=== PATIENT | female | born 1970 | race Caucasian/White ===

== ENCOUNTER 2018-01-03 18:59 | Emergency (ER) | payer OTHER ==
[2018-01-03] MEDS: Sodium Chloride 0.9% 10 ML Syringe FLUSH PRN (19:46)
--- NOTE | 2018-01-03 19:54 | EDM.PDOC ---
ED HPI GENERAL MEDICAL PROBLEM - General Chief Complaint: HOSPITAL STAFF PHARMACIST Problem Stated Complaint: LOWER STOMACH/BACK PAIN Time Seen by Provider: 01/03/18 19:34 Source of Information: Reports: Patient History Limitations: Reports: No Limitations - History of Present Illness INITIAL COMMENTS - FREE TEXT/NARRATIVE: 47-year-old female presents for evaluation and treatment of lower abdominal pain and back pain. Patient reports she was at work. States that the pain began suddenly. Reports that it is across her lower abdomen and radiates into her back. Pain is currently an 8 out of 10. She describes as a constant, cramping pain. She states that it worse was a "1000" out of 10. Pain has improved without any intervention. She reports feeling nauseous, diaphoretic, lightheaded and dizzy. No fevers, vomiting, syncope, dysuria or hematuria. Reports she had a good appetite earlier today. Patient reports that she started her menstrual cycle Mon. States that is heavier than normal and she is passing clots. She states she is having to change her pad or tampon about every 2 hours. States that her menstrual cycle was not late. She had a tubal ligation about 20 years ago. Patient is healthy with no known medical conditions. She's not currently on any medications. No previous surgeries to her abdomen. Onset: Today, Sudden Location: Reports: Abdomen, Back Quality: Reports: Other (cramping) Abdominal Pain Score (Numeric/FACES): 8 - Related Data Allergies Allergy/AdvReac Type Severity Reaction Status Date / Time No Known Allergies Allergy Verified 01/03/18 19:13 Home Meds: Home Meds Acetaminophen/oxyCODONE [Percocet 325-5 MG] 1 tab PO Q6HR PRN #8 tab 01/03/18 [ Rx] Ibuprofen 800 mg PO Q6HR PRN #20 tablet 01/03/18 [Rx] Ondansetron [Zofran ODT] 4 mg PO Q6H PRN #15 tab.dis 01/03/18 [Rx] Past Medical History - Past Health History Medical/Surgical History: Denies Medical/Surgical History Social & Family History - Tobacco Use Smoking Status *Q: Never Smoker - Recreational Drug Use Recreational Drug Use: No ED ROS GENERAL - Review of Systems Review Of Systems: See Below Constitutional: Denies: Fever, Decreased Appetite GI/Abdominal: Reports: Abdominal Pain (lower abdomen), Nausea. Denies: Vomiting : Denies: Dysuria Musculoskeletal: Reports: Back Pain (low back) Neurological: Denies: Syncope ED EXAM, GI/ABD - Physical Exam Exam: See Below Exam Limited By: No Limitations General Appearance: Alert, WD/WN, No Apparent Distress, Anxious, Obese Respiratory/Chest: No Respiratory Distress, Lungs Clear, Normal Breath Sounds Cardiovascular: Normal Peripheral Pulses, Regular Rate, Rhythm, No Murmur GI/Abdominal Exam: Normal Bowel Sounds, Rebound, Tender (bilateral lower abdomen right> left), Other (+ obturator sign, - psosas sign, no pain with heel percussion). No: Rigid Neurological: Alert, Oriented, Normal Cognition Psychiatric: Normal Affect, Normal Mood Skin Exam: Warm, Dry, Normal Color Course - Vital Signs Last Recorded V/S: Last Vital Signs Temp 36.7 C 01/03/18 19:14 Pulse 73 01/03/18 19:14 Resp 17 01/03/18 19:14 BP 179/94 H 01/03/18 19:14 Pulse Ox 98 01/03/18 19:14 - Orders/Labs/Meds Orders: Active Orders 24 hr Category Date Time Status Peripheral IV Care [RC] . DIRECTED Care 01/03/18 19:38 Active Abdomen Pelvis w Cont [CT] Stat Exams 01/03/18 20:39 Ordered UA W/MICROSCOPIC [URIN] Stat Lab 01/03/18 20:33 Ordered Sodium Chloride 0.9% [Saline Flush] Med 01/03/18 19:38 Active 10 ml FLUSH ASDIRECTED PRN Peripheral IV Insertion Adult [OM.PC] Routine Oth 01/03/18 19:37 Ordered Medication Orders Sodium Chloride (Saline Flush) 10 ml FLUSH ASDIRECTED PRN PRN Reason: Keep Vein Open Last Admin: 01/03/18 19:46 Dose: 10 ml Labs: Laboratory Tests 01/03/18 01/03/18 01/03/18 Range/Units 20:15 20:15 20:15 WBC 11.88 H (3.98-10.04) K/mm3 RBC 4.72 (3.98-5.22) M/mm3 Hgb 12.9 (11.2-15.7) gm/L Hct 39.0 (34.1-44.9) % MCV 82.6 (79.4-94.8) fl MCH 27.3 (25.6-32.2) pg MCHC 33.1 (32.2-35.5) g/dl RDW Std Deviation 40.1 (36.4-46.3) fL Plt Count 111 L (182-369) K/mm3 MPV 10.7 (9.4-12.3) fl Neutrophils % (Manual) 72 H (40-60) % Band Neutrophils % 0 (0-10) % Lymphocytes % (Manual) 18 L (20-40) % Atypical Lymphs % 0 % Monocytes % (Manual) 9 (2-10) % Eosinophils % (Manual) 1 (0.7-5.8) % Basophils % (Manual) 0 L (0.1-1.2) Platelet Estimate Adequate Plt Morphology Comment Normal RBC Morph Comment Normal Sodium 138 (136-145) mEq/L Potassium 3.8 (3.5-5.1) mEq/L Chloride 102 (98-107) mEq/L Carbon Dioxide 26 (21-32) mEq/L Anion Gap 13.8 (5-15) BUN 11 (7-18) mg/dL Creatinine 0.8 (0.55-1.02) mg/dL Est Cr Clr Drug Dosing 74.26 mL/min Estimated GFR (MDRD) > 60 (>60) mL/min BUN/Creatinine Ratio 13.8 L (14-18) Glucose 139 H (74-106) mg/dL Calcium 8.7 (8.5-10.1) mg/dL Total Bilirubin 0.3 (0.2-1.0) mg/dL AST 24 (15-37) U/L ALT 49 (14-59) U/L Alkaline Phosphatase 75 (46-116) U/L C-Reactive Protein 0.9 (<1.0) mg/dL Total Protein 7.0 (6.4-8.2) g/dl Albumin 3.8 (3.4-5.0) g/dl Globulin 3.2 gm/dL Albumin/Globulin Ratio 1.2 (1-2) HCG, Qual Negative (NEGATIVE) Urine Color (Yellow) Urine Appearance (Clear) Urine pH (5.0-8.0) Ur Specific [place] (1.005-1.030) Urine Protein (Negative) Urine Glucose (UA) (Negative) Urine Ketones (Negative) Urine Occult Blood (Negative) Urine Nitrite (Negative) Urine Bilirubin (Negative) Urine Urobilinogen (0.2-1.0) Ur Leukocyte Esterase (Negative) Urine RBC (0-5) /hpf Urine WBC (0-5) /hpf Ur Epithelial Cells (0-5) /hpf Urine Bacteria (FEW) /hpf Urine Mucus (FEW) /hpf 01/03/18 Range/Units 20:33 WBC (3.98-10.04) K/mm3 RBC (3.98-5.22) M/mm3 Hgb (11.2-15.7) gm/L Hct (34.1-44.9) % MCV (79.4-94.8) fl MCH (25.6-32.2) pg MCHC (32.2-35.5) g/dl RDW Std Deviation (36.4-46.3) fL Plt Count (182-369) K/mm3 MPV (9.4-12.3) fl Neutrophils % (Manual) (40-60) % Band Neutrophils % (0-10) % Lymphocytes % (Manual) (20-40) % Atypical Lymphs % % Monocytes % (Manual) (2-10) % Eosinophils % (Manual) (0.7-5.8) % Basophils % (Manual) (0.1-1.2) Platelet Estimate Plt Morphology Comment RBC Morph Comment Sodium (136-145) mEq/L Potassium (3.5-5.1) mEq/L Chloride (98-107) mEq/L Carbon Dioxide (21-32) mEq/L Anion Gap (5-15) BUN (7-18) mg/dL Creatinine (0.55-1.02) mg/dL Est Cr Clr Drug Dosing mL/min Estimated GFR (MDRD) (>60) mL/min BUN/Creatinine Ratio (14-18) Glucose (74-106) mg/dL Calcium (8.5-10.1) mg/dL Total Bilirubin (0.2-1.0) mg/dL AST (15-37) U/L ALT (14-59) U/L Alkaline Phosphatase (46-116) U/L C-Reactive Protein (<1.0) mg/dL Total Protein (6.4-8.2) g/dl Albumin (3.4-5.0) g/dl Globulin gm/dL Albumin/Globulin Ratio (1-2) HCG, Qual (NEGATIVE) Urine Color [place] H (Yellow) Urine Appearance Slt cloudy H (Clear) Urine pH 6.0 (5.0-8.0) Ur Specific [place] 1.015 (1.005-1.030) Urine Protein Negative (Negative) Urine Glucose (UA) Negative (Negative) Urine Ketones Negative (Negative) Urine Occult Blood 3+ H (Negative) Urine Nitrite Negative (Negative) Urine Bilirubin Negative (Negative) Urine Urobilinogen 0.2 (0.2-1.0) Ur Leukocyte Esterase Negative (Negative) Urine RBC 40-50 H (0-5) /hpf Urine WBC 0-5 (0-5) /hpf Ur Epithelial Cells 0-5 (0-5) /hpf Urine Bacteria Not seen (FEW) /hpf Urine Mucus Not seen (FEW) /hpf Meds: Medications Generic Name Dose Route Start Last Admin Trade Name Freq PRN Reason Stop Dose Admin Sodium Chloride 10 ml 01/03/18 19:38 01/03/18 19:46 Saline Flush FLUSH 10 ml ASDIRECTED PRN Administration Keep Vein Open Discontinued Medications Generic Name Dose Route Start Last Admin Trade Name Freq PRN Reason Stop Dose Admin Diatrizoate Meglum/Diatrizoate Sod 90 ml 01/03/18 21:59 01/03/18 22:21 Gastrografin 37% PO 01/03/18 22:00 90 ml ONETIME ONE Administration Hydromorphone HCl 0.5 mg 01/03/18 19:38 01/03/18 19:59 Dilaudid IVPUSH 01/03/18 19:39 0.5 mg ONETIME ONE Administration Hydromorphone HCl 0.5 mg 01/03/18 21:53 01/03/18 21:59 Dilaudid IVPUSH 01/03/18 21:54 0.5 mg ONETIME ONE Administration Sodium Chloride 1,000 mls @ 999 mls/hr 01/03/18 19:38 01/03/18 19:58 Normal Saline IV 01/03/18 20:38 999 mls/hr ONETIME ONE Administration Iopamidol 100 ml 01/03/18 21:58 01/03/18 22:21 Isovue-300 (61%) IVPUSH 01/03/18 21:59 100 ml ONETIME ONE Administration Ketorolac Tromethamine 30 mg 01/03/18 22:40 01/03/18 22:44 Toradol IVPUSH 01/03/18 22:41 30 mg ONETIME ONE Administration Ondansetron HCl 4 mg 01/03/18 19:38 01/03/18 19:59 Zofran IVPUSH 01/03/18 19:39 4 mg ONETIME ONE Administration - Radiology Interpretation Free Text/Narrative:: CT of the abdomen and pelvis with IV and oral contrast impression per vrad: No acute findings - Re-Assessments/Exams Free Text/Narrative Re-Assessment/Exam: 01/03/18 22:48 I reviewed the labs and imaging with the patient. Appears to be menstrual cramps causing her pain tonight. I did order some Toradol as this will target her discomfort better than the Dilaudid. Will get her some pain pills and some medication for nausea. She is to follow-up with her HOSPITAL STAFF PHARMACIST if her symptoms persist. Discharge instructions as documented. Departure - Departure Time of Disposition: 22:49 Disposition: Home, Self-Care 01 Condition: Fair Clinical Impression: Dysmenorrhea, Menorrhagia - Discharge Information Prescriptions: Acetaminophen/oxyCODONE [Percocet 325-5 MG] 1 tab PO Q6HR PRN #8 tab PRN Reason: Pain Ibuprofen 800 mg PO Q6HR PRN #20 tablet PRN Reason: Pain Ondansetron [Zofran ODT] 4 mg PO Q6H PRN #15 tab.dis PRN Reason: Nausea Referrals: Almaz Wu PA-C [Primary Care Provider] - Maria Antonia Roberson NP [Nurse Practitioner] - Forms: ED Department Discharge, ED Return to Work/School Form Additional Instructions: Your given medication the other can affect your ability to drive and operate machinery. Do not drive or operate machinery within 12 hours of taking prescription narcotic pain medication. Rest. Make sure are drinking plenty of fluids. Ibuprofen 800 mg 1 tab every 6 hours as needed for pain. For pain not relieved by ibuprofen you may take Percocet 1 tab every 6 hours. Percocet is habit- forming, recommend you take as few of these as needed to control your pain. Do not drive or operate machinery within 12 hours of taking Percocet. Zofran 1 tab sublingual every 6 hours as needed for nausea. Follow up with your HOSPITAL STAFF PHARMACIST next week if your symptoms persist. Please return to the ER for symptoms change or worsen. - My Orders Last 24 Hours: My Active Orders 01/03/18 19:37 Peripheral IV Insertion Adult [OM.PC] Routine 01/03/18 19:38 Peripheral IV Care [RC] . DIRECTED Sodium Chloride 0.9% [Saline Flush] 10 ml FLUSH ASDIRECTED PRN 01/03/18 20:33 UA W/MICROSCOPIC [URIN] Stat 01/03/18 20:39 Abdomen Pelvis w Cont [CT] Stat - Assessment/Plan Last 24 Hours: My Active Orders 01/03/18 19:37 Peripheral IV Insertion Adult [OM.PC] Routine 01/03/18 19:38 Peripheral IV Care [RC] . DIRECTED Sodium Chloride 0.9% [Saline Flush] 10 ml FLUSH ASDIRECTED PRN 01/03/18 20:33 UA W/MICROSCOPIC [URIN] Stat 01/03/18 20:39 Abdomen Pelvis w Cont [CT] Stat
[2018-01-03] MEDS: Sodium Chloride 0.9% 1,000 ML IV ONE (19:58)
[2018-01-03] MEDS: Ondansetron 4 MG/2 ML SDV IVPUSH ONE (19:59)
[2018-01-03] MEDS: HYDROmorphone 0.5 MG/0.5 ML SYRINGE IVPUSH ONE ×2 (19:59→21:59)
[2018-01-03] MEDS: Diatrizoate Meglumine/Diatrizoate Sodium 37% 120 ML Bottle PO ONE (22:21)
[2018-01-03] MEDS: Iopamidol 612 MG/ML 100 ML Bottle IVPUSH ONE (22:21)
[2018-01-03] MEDS: Ketorolac 30 MG/ML SDV IVPUSH ONE (22:44)
--- NOTE | 2018-01-04 07:14 | CT ---
CT abdomen and pelvis Technique: Multiple axial sections were obtained from above the dome of the diaphragm inferiorly through the pubic symphysis. Intravenous and oral contrast was utilized. Delayed images were also obtained through the pelvis. Comparison: No prior abdominal imaging. Findings: Visualized lung bases shows nothing acute. Liver shows mild fatty infiltration. Spleen appears within normal limits. Adrenal glands show no nodule. Pancreas appears within normal limits. Gallbladder contains no calcified gallstones. Right and left kidneys show symmetric contrast enhancement without hydronephrosis or mass. Aorta shows no aneurysmal dilatation. No retroperitoneal adenopathy or mesenteric abnormalities are seen. Appendix is seen which appears normal. No pelvic mass or adenopathy is seen. Delayed images show contrast within the distal ureters as well as within the bladder. No free fluid or inflammatory change is seen. No bowel dilatation or bowel wall thickening is identified. Bone window settings were reviewed which show degenerative change and vacuum phenomena within the apophyseal joints of L4-L5 and L5-S1. Impression: 1. Degenerative change within the lumbar spine. 2. Fatty infiltration within the liver. 3. No acute abnormality is identified on CT study of the abdomen and pelvis. Diagnostic code #2 I agree with preliminary report issued by [facility] ([facility] preliminary report dictated on 01/03/18, 11:31 PM Central Time)
== END 2018-01-03 23:10 | disposition home or self-care (01) ==
LOC: JD.ED 18:59
DX: N92.0 Excessive and frequent menstruation with regular cycle (principal); N94.6 Dysmenorrhea, unspecified
CPT/HCPCS: 36415; 74177; 80053; 81001; 84703; 85025; 86140; 96361; 96374; 96375; 96376; 99284; J1170; J1885; J2405; J7040; J7050; Q9963; Q9967

== ENCOUNTER 2021-08-26 07:03 | Day surgery (SDC) | payer OTHER ==
[~2021-08-26 07:03] MED LIST: Lactated Ringers 1,000 ML IV SCH; Lidocaine 1%/Sod Bicarbonate in NS 8.4% 1 ML Syringe IDERM PRN; Sodium Chloride 0.9% 10 ML Syringe FLUSH PRN
--- NOTE | 2021-08-26 07:23 | PCM.PREANE ---
Preanesthetic Assessment - Anesthesia/Transfusion/Family Hx Anesthesia History: Prior Anesthesia Without Reaction Family History of Anesthesia Reaction: No Transfusion History: No Prior Transfusion(s) Intubation History: Unknown - Review of Systems General: No Symptoms Pulmonary: No Symptoms Cardiovascular: No Symptoms Gastrointestinal: No Symptoms Neurological: Headache Other: Reports: Diabetes - Physical Assessment NPO Status Date: 08/26/21 NPO Status Time: 04:00 ASA Class: 2 Mental Status: Alert & Oriented x3 Airway Class: Mallampati = 2 Dentition: Reports: Normal Dentition Thyro-Mental Finger Breadths: 3 Mouth Opening Finger Breadths: 3 ROM/Head Extension: Full Lungs: Clear to Auscultation, Normal Respiratory Effort Cardiovascular: Regular Rate, Regular Rhythm - Allergies Allergies/Adverse Reactions: Allergies Allergy/AdvReac Type Severity Reaction Status Date / Time No Known Allergies Allergy Verified 08/25/21 15:12 - Acknowledgements Anesthesia Type Planned: MAC Pt an Appropriate Candidate for the Planned Anesthesia: Yes Alternatives and Risks of Anesthesia Discussed w Pt/Guardian: Yes Pt/Guardian Understands and Agrees with Anesthesia Plan: Yes PreAnesthesia Questionnaire - Past Health History Medical/Surgical History: Denies Medical/Surgical History HEENT History: Reports: Allergic Rhinitis, Impaired Vision, Sinusitis Cardiovascular History: Reports: Hypertension Respiratory History: Reports: Other (See Below) Other Respiratory History: snoring, mild sleep apnea Gastrointestinal History: Reports: Other (See Below) Other Gastrointestinal History: ABDOMINAL PAIN Genitourinary History: Reports: None SUPERVISOR UNLOADING History: Reports: Other (See Below) Other OB/BYN History: abnormal menses, menorrhagia, Musculoskeletal History: Reports: Other (See Below) Other Musculoskeletal History: skull fracture Neurological History: Reports: None Psychiatric History: Reports: None Endocrine/Metabolic History: Reports: Diabetes, Type II, Hypothyroidism, Other (See Below) Other Endocrine/Metabolic History: abnormal TSH Hematologic History: Reports: None Immunologic History: Reports: None Oncologic (Cancer) History: Reports: None Dermatologic History: Reports: Other (See Below) Other Dermatologic History: dermatitis - Infectious Disease History Infectious Disease History: Reports: None - Past Surgical History Head Surgeries/Procedures: Reports: None HEENT Surgical History: Reports: Tonsillectomy Cardiovascular Surgical History: Reports: None Respiratory Surgical History: Reports: None GI Surgical History: Reports: None Female Surgical History: Reports: Hysterectomy, Tubal Ligation Male Surgical History: Reports: None Endocrine Surgical History: Reports: None Neurological Surgical History: Reports: None Oncologic Surgical History: Reports: None Dermatological Surgical History: Reports: None - SUBSTANCE USE Tobacco Use Status *Q: Never Tobacco User Recreational Drug Use History: No - HOME MEDS Home Medications: Home Meds metFORMIN [Glucophage XR] 1,000 mg PO BID 08/09/18 [History] Ibuprofen 200 - 600 mg PO Q6H PRN 08/25/21 [History] Insulin Glarg,Human.Rec.Analog [Lantus] 14 units SQ BEDTIME 08/25/21 [History] Omeprazole Magnesium [Prilosec Otc] 20 mg PO DAILY 08/25/21 [History] lisinopriL [Lisinopril] 20 mg PO DAILY 08/25/21 [History] - CURRENT (IN HOUSE) MEDS Current Meds: Current Medications Lactated Ringer's (Ringers, Lactated) 1,000 mls @ 125 mls/hr IV ASDIRECTED FILIPE Stop: 08/26/21 23:00 Lidocaine/Sodium Bicarbonate (Lidocaine 1%/Sod Bicarbonate In Ns 8.4% 1 Ml Syringe) 0.25 ml IDERM ONETIME PRN PRN Reason: Prior to IV Start Stop: 08/26/21 18:00 Sodium Chloride (Sodium Chloride 0.9% 10 Ml Syringe) 10 ml FLUSH ASDIRECTED PRN PRN Reason: Keep Vein Open Stop: 08/26/21 18:00
[2021-08-26] MEDS ORDERED: fentaNYL 100 MCG/2 ML SDV ONE (07:28)
[2021-08-26] MEDS ORDERED: Propofol 200 MG/20 ML SDV ONE ×3 (07:28→08:28)
[2021-08-26] MEDS ORDERED: Lidocaine 1% 4 ML ONE (07:28)
--- NOTE | 2021-08-26 08:49 | PCM.PRNOTE ---
- Free Text/Narrative Note: Date: 08/26/2021 Procedure: diagnostic esophagogastroduodenoscopy, screening colonoscopy History: bloating, abdominal pain. No prior colon cancer screening, average risk Endoscopist: Moe Daniels MD Findings: no abnormality noted on upper endoscopy. Prep was fair. Cecum reached. No polyps or other pathology identified. Challenging colonoscopy; had to reposition supine to successfully intubate the cecum. Detailed Report: The patient was taken to the endoscopy suite and placed in left lateral decubitus position. Time out was performed and monitored anesthesia care initiated. A bite block was placed, and the endoscope was inserted orally and advanced to the duodenum. Everything appeared grossly normal. Samples of mucosa were obtained with cold forceps from the proximal duodenum, antrum, gastroesophageal junction and distal esophagus. No hiatal hernia was noted. Air was suctioned from the stomach prior to withdrawal of the scope. Next, attention was turned to colonoscopy. The anus appeared normal, and digital exam was remarkable only for what felt like scar tissue anteriorly consistent with prior episiotomy. No mass was palpated. The colonoscope was inserted and advanced to the cecum. Reaching the cecum was difficult due to redundant, serpiginous colon. Prep was fair, there were a lot of bubbles. No polyps were identified as the scope was slowly withdrawn. No diverticulosis noted. No significant internal hemorrhoidal disease. The patient tolerated the procedure well.
--- NOTE | 2021-08-26 08:53 | PCM48HPAN ---
Post Anesthesia Note - EVALUATION WITHIN 48HRS OF ANESTHETIC Vital Signs in Normal Range: Yes Patient Participated in Evaluation: Yes Respiratory Function Stable: Yes Airway Patent: Yes Cardiovascular Function Stable: Yes Hydration Status Stable: Yes Pain Control Satisfactory: Yes Nausea and Vomiting Control Satisfactory: Yes Mental Status Recovered: Yes
[2021-08-26] MEDS ORDERED: fentaNYL 100 MCG/2 ML SDV IVPUSH ONE (09:30)
== END 2021-08-26 10:10 | disposition home or self-care (01) ==
LOC: JD.SDS 07:03
PROVIDERS: ATTEND Surgery
DX: Z12.11 Encounter for screening for malignant neoplasm of colon (principal); K29.50 Unspecified chronic gastritis without bleeding; E11.9 Type 2 diabetes mellitus without complications; I10 Essential (primary) hypertension; E03.9 Hypothyroidism, unspecified; Z79.899 Other long term (current) drug therapy; Z79.84 Long term (current) use of oral hypoglycemic drugs; Z98.890 Other specified postprocedural states; Z79.4 Long term (current) use of insulin
CPT/HCPCS: 36415; 43239; 45378; 82947; J2704; J3010; J7120; 00813

== ENCOUNTER 2021-12-09 07:44 | Day surgery (SDC) | payer OTHER ==
[2021-12-09] MEDS: Bupivacaine 0.5% 30 ML SDV ONE ×2 (04:45→08:06)
[2021-12-09] MEDS: Lactated Ringers 1,000 ML IV SCH ×3 (07:30→14:00)
[~2021-12-09 07:44] MED LIST changes: -Lactated Ringers 1,000 ML IV SCH; +Lidocaine 1% 4 ML ONE; +Midazolam 1 MG/ML 2 ML SDV ONE; +Propofol 200 MG/20 ML SDV ONE; +Rocuronium 50 MG/5 ML Vial ONE; +fentaNYL 250 MCG/5 ML SDV ONE
[2021-12-09] MEDS ORDERED: HYDROmorphone 0.5 MG/0.5 ML Syringe ONE ×2 (08:01→08:13)
[2021-12-09] MEDS ORDERED: fentaNYL 100 MCG/2 ML SDV ONE (08:05)
[2021-12-09] MEDS ORDERED: Ketorolac 30 MG/ML SDV ONE (08:05)
[2021-12-09] MEDS ORDERED: Ondansetron 4 MG/2 ML SDV ONE (08:05)
[2021-12-09] MEDS ORDERED: Lactated Ringers 1,000 ML ONE (08:11)
[2021-12-09] MEDS ORDERED: fentaNYL 100 MCG/2 ML SDV IVPUSH PRN (08:17)
[2021-12-09] MEDS ORDERED: HYDROmorphone 0.5 MG/0.5 ML Syringe IVPUSH PRN (08:17)
[2021-12-09] MEDS ORDERED: Ondansetron 4 MG/2 ML SDV IVPUSH PRN (08:17)
[2021-12-09] MEDS ORDERED: oxyCODONE 5 MG Tab PO ONE (10:09)
[2021-12-09] MEDS ORDERED: Promethazine 12.5 MG in Sodium Chloride 0.9% 50 ML IV ONE (12:00)
[2021-12-09] MEDS ORDERED: Metoclopramide 10 MG/2 ML SDV IVPUSH ONE (14:00)
[2021-12-09] MEDS ORDERED: Haloperidol Lactate 5 MG/ML SDV IVPUSH ONE ×2 (14:21→15:00)
[2021-12-09] MEDS ORDERED: Scopolamine 1.5 MG Transdermal Patch TOP ONE (14:45)
[2021-12-09] MEDS ORDERED: Ibuprofen 400 MG Tab PO PRN (14:58)
[2021-12-09] MEDS ORDERED: oxyCODONE 5 MG Tab PO PRN (15:20)
[2021-12-09] MEDS ORDERED: Acetaminophen 325 MG Tab PO PRN (17:00)
[2021-12-09] MEDS: Sodium Chloride 0.9% 10 ML Syringe FLUSH SCH ×2 (17:43→21:20)
[2021-12-10] MEDS ORDERED: Metoclopramide 10 MG/2 ML SDV ONE (08:58)
== END 2021-12-10 09:43 | disposition home or self-care (01) ==
LOC: JD.SDS 07:44 → JD.MS 17:20 → JD.SDS 12-10 09:43
PROVIDERS: ATTEND Surgery
DX: K80.10 Calculus of gallbladder with chronic cholecystitis without obstruction (principal); K85.10 Biliary acute pancreatitis without necrosis or infection; E11.9 Type 2 diabetes mellitus without complications; I10 Essential (primary) hypertension; Z98.890 Other specified postprocedural states
CPT/HCPCS: 47562; A9270; J1170; J1630; J2250; J2405; J2550; J2704; J2710; J2765; J3010; J3490; J7120; 00790; 88304; J1885

== ENCOUNTER 2022-11-08 18:25 | Inpatient (IN) | payer OTHER ==
[2022-11-08] MEDS ORDERED: HYDROmorphone 0.5 MG/0.5 ML Syringe IVPUSH ONE (19:04)
[2022-11-08] MEDS ORDERED: Sodium Chloride 0.9% 1,000 ML IV STA (19:04)
[2022-11-09] MEDS ORDERED: HYDROmorphone 0.5 MG/0.5 ML Syringe IVPUSH PRN (00:12)
[2022-11-09] MEDS ORDERED: Ondansetron 4 MG/2 ML SDV IVPUSH PRN (00:14)
[2022-11-09] MEDS: Sodium Chloride 0.9% 1,000 ML IV SCH ×2 (02:39→10:43)
[2022-11-09] MEDS: Lisinopril 20 MG Tab PO SCH (08:39)
[2022-11-09] MEDS: Rosuvastatin 10 MG Tab PO SCH (08:39)
[2022-11-09] MEDS: Acetaminophen 325 MG Tab PO PRN ×4 (08:40→23:03)
[2022-11-09] MEDS: METFORMIN 500 MG PO SCH ×2 (10:10→22:13)
[2022-11-09] MEDS ORDERED: 50% Dextrose in Water 50 ML Syringe IVPUSH ONE ×2 (12:00→16:05)
[2022-11-09] MEDS ORDERED: Dicyclomine 10 MG Cap PO ONE (14:15)
[2022-11-09] MEDS: Dextrose 5 %-0.2 % NaCl 1,000 ML IV SCH (16:30)
[2022-11-09] MEDS ORDERED: Enoxaparin 40 MG/0.4 ML Syringe SUBCUT SCH (21:00)
[2022-11-10] MEDS: Dextrose 5 %-0.2 % NaCl 1,000 ML IV SCH (02:37)
[2022-11-10] MEDS: Rosuvastatin 10 MG Tab PO SCH (08:27)
[2022-11-10] MEDS: Lisinopril 20 MG Tab PO SCH (08:27)
[2022-11-10] MEDS: METFORMIN 500 MG PO SCH (08:27)
== END 2022-11-10 15:10 | disposition home or self-care (01) | DRG 388 ==
LOC: JD.ED 18:25 → JD.MS 20:13
PROVIDERS: ADMIT Internal Medicine; ATTEND Internal Medicine
DX: K56.7 Ileus, unspecified (principal); K85.90 Acute pancreatitis without necrosis or infection, unspecified; E78.5 Hyperlipidemia, unspecified; E11.9 Type 2 diabetes mellitus without complications; I10 Essential (primary) hypertension; Z87.81 Personal history of (healed) traumatic fracture; Z79.4 Long term (current) use of insulin; Z79.899 Other long term (current) drug therapy; Z90.89 Acquired absence of other organs; Z98.51 Tubal ligation status
CPT/HCPCS: 36415; 80048; 80053; 82947; 83735; 85025; 96361; 96374; 96376; 99284-25; 99285; A9270-GY; J1170; J1650; J3490; J7030; J7042

== ENCOUNTER 2022-11-30 08:28 | Emergency (ER) | payer OTHER ==
[2022-11-30] MEDS ORDERED: Dextrose 5%-Lactated Ringers 1,000 ML IV SCH ×2 (10:45→13:30)
[2022-11-30 11:23] LABS: HEMOGLOBIN A1C 5.9 %
== END 2022-11-30 15:10 | disposition home or self-care (01) ==
LOC: JD.ED 08:28
DX: E86.9 Volume depletion, unspecified (principal); I95.9 Hypotension, unspecified; R07.89 Other chest pain; K92.2 Gastrointestinal hemorrhage, unspecified; E78.00 Pure hypercholesterolemia, unspecified; I10 Essential (primary) hypertension; E11.9 Type 2 diabetes mellitus without complications; Z79.84 Long term (current) use of oral hypoglycemic drugs; Z79.899 Other long term (current) drug therapy
CPT/HCPCS: 36415; 80053; 83036; 85025; 86140; 96360; 96361; 99284; J7121; 99283

== ENCOUNTER 2024-08-07 07:32 | Inpatient (IN) | payer OTHER ==
[2024-08-07] MEDS: Lactated Ringers 1,000 ML IV SCH ×2 (08:53→12:55)
[2024-08-07] MEDS: Sodium Chloride 0.9% 10 ML Syringe FLUSH PRN ×2 (08:55→09:09)
[2024-08-07] MEDS: HYDROmorphone 0.5 MG/0.5 ML Syringe IVPUSH ONE (08:55)
[2024-08-07] MEDS: Ondansetron 4 MG/2 ML SDV IVPUSH ONE (08:55)
[2024-08-07 08:59] LABS: BASOPHILS PERCENT AUTO 0.3 % (0.0-1.0); EOSINOPHILS PERCENT AUTO 0.2 % (0.0-6.0); HEMATOCRIT 39.5 % (37.0-47.0); HEMOGLOBIN 13.1 gm/dl (12.0-16.0); IMMATURE GRAN ABSOLUTE AUTO 0.03 K/mm3 (0.00-0.05); IMMATURE GRAN PERCENT AUTO 0.3 % (0.0-0.4); LYMPHOCYTES ABSOLUTE AUTO 1.6 K/mm3 (1.0-4.8); LYMPHOCYTES PERCENT AUTO 13.6 % (24.0-44.0); MEAN CORPUSCULAR HEMOGLOBIN 27.6 pg (28.0-32.0); MEAN CORPUSCULAR HGB CONC 33.2 g/dl (32.0-36.0); MEAN CORPUSCULAR VOLUME 83.3 fl (83.0-99.0); MEAN PLATELET VOLUME 10.4 fl (9.4-12.3); MONOCYTES ABSOLUTE AUTO 0.7 K/mm3 (0.0-0.8); MONOCYTES PERCENT AUTO 5.9 % (0.0-8.0); NEUTROPHILS ABSOLUTE AUTO 9.5 K/mm3 (1.8-7.7); NEUTROPHILS PERCENT AUTO 79.7 % (41.0-71.0); PLATELET COUNT,PLT 200 K/mm3 (150-400); RED BLOOD CELL COUNT 4.74 M/mm3 (4.10-5.30); WHITE BLOOD CELL COUNT,WBC 11.84 K/mm3 (3.9-11.3)
[2024-08-07 09:00] LABS: APPEARANCE,URINE SLT CLOUDY (Clear); BILIRUBIN,URINE 2+ (Negative); COLOR,URINE YELLOW (Yellow); GLUCOSE,URINE NEGATIVE (Negative); KETONES,URINE 4+ (Negative); LEUKOCYTE ESTERASE,URINE TRACE (Negative); NITRITE,URINE NEGATIVE (Negative); OCCULT BLOOD,URINE NEGATIVE (Negative); PROTEIN,URINE 2+ (Negative); UROBILINOGEN,URINE 0.2 (0.2-1.0)
[2024-08-07] MEDS: Iopamidol 612 MG/ML 100 ML Bottle IVPUSH ONE (09:09)
[2024-08-07 09:18] LABS: A/G RATIO 1.1 (1-2); ALBUMIN 3.8 g/dl (3.4-5.0); ANION GAP 12.1 (5-15); BILIRUBIN TOTAL 0.5 mg/dL (0.2-1.0); CALCIUM 9.1 mg/dL (8.5-10.1); CREATININE 0.8 mg/dL (0.55-1.02); EST CRCL DRUG DOSING (CG) 69.42 mL/min; POTASSIUM,K 4.1 mEq/L (3.5-5.1); PROTEIN TOTAL,TP 7.3 g/dl (6.4-8.2)
[2024-08-07 09:26] LABS: RBC,URINE 0-5 /hpf (0-5)
[2024-08-07 09:27] LABS: BACTERIA,URINE FEW /hpf (FEW); MUCUS,URINE FEW /hpf (FEW)
[2024-08-07] MEDS ORDERED: Pantoprazole 40 MG Vial IVPUSH ONE (10:01)
[2024-08-07] MEDS ORDERED: Acetaminophen 325 MG Tab PO PRN (10:48)
[2024-08-07] MEDS ORDERED: Lactated Ringers 1,000 ML IV ONE (11:40)
[2024-08-07] MEDS: Pantoprazole 40 MG Vial IVPUSH ONE (12:06)
[2024-08-07] MEDS: oxyCODONE 5 MG Tab PO PRN (12:54)
[2024-08-07] MEDS ORDERED: 50% Dextrose in Water 50 ML Syringe IVPUSH PRN (16:06)
[2024-08-07] MEDS: Insulin Lispro 100 Unit/ML 3 ML KwikPen SUBCUT SCH (17:40)
[2024-08-07] MEDS: Acetaminophen 325 MG Tab PO PRN (18:44)
[2024-08-08] MEDS: Pantoprazole 40 MG Tab.CR PO SCH (05:04)
[2024-08-08 05:32] LABS: A/G RATIO 0.9 (1-2); ALBUMIN 3.2 g/dl (3.4-5.0); ANION GAP 15.1 (5-15); BILIRUBIN TOTAL 0.8 mg/dL (0.2-1.0); CALCIUM 8.8 mg/dL (8.5-10.1); CREATININE 0.7 mg/dL (0.55-1.02); EST CRCL DRUG DOSING (CG) 79.34 mL/min; POTASSIUM,K 4.1 mEq/L (3.5-5.1); PROTEIN TOTAL,TP 6.6 g/dl (6.4-8.2)
[2024-08-08 05:38] LABS: BASOPHILS PERCENT AUTO 0.3 % (0.0-1.0); EOSINOPHILS ABSOLUTE AUTO 0.1 K/mm3 (0.0-0.4); EOSINOPHILS PERCENT AUTO 0.3 % (0.0-6.0); HEMATOCRIT 37.1 % (37.0-47.0); HEMOGLOBIN 12.4 gm/dl (12.0-16.0); IMMATURE GRAN ABSOLUTE AUTO 0.04 K/mm3 (0.00-0.05); IMMATURE GRAN PERCENT AUTO 0.3 % (0.0-0.4); LYMPHOCYTES ABSOLUTE AUTO 1.3 K/mm3 (1.0-4.8); LYMPHOCYTES PERCENT AUTO 9.1 % (24.0-44.0); MEAN CORPUSCULAR HEMOGLOBIN 27.5 pg (28.0-32.0); MEAN CORPUSCULAR HGB CONC 33.4 g/dl (32.0-36.0); MEAN CORPUSCULAR VOLUME 82.3 fl (83.0-99.0); MEAN PLATELET VOLUME 11.3 fl (9.4-12.3); MONOCYTES ABSOLUTE AUTO 1.3 K/mm3 (0.0-0.8); MONOCYTES PERCENT AUTO 8.9 % (0.0-8.0); NEUTROPHILS ABSOLUTE AUTO 11.6 K/mm3 (1.8-7.7); NEUTROPHILS PERCENT AUTO 81.1 % (41.0-71.0); PLATELET COUNT,PLT 195 K/mm3 (150-400); RED BLOOD CELL COUNT 4.51 M/mm3 (4.10-5.30); WHITE BLOOD CELL COUNT,WBC 14.31 K/mm3 (3.9-11.3)
[2024-08-08] MEDS: Rosuvastatin 10 MG Tab PO SCH (08:42)
[2024-08-08] MEDS: Lisinopril 5 MG Tab PO SCH (08:43)
[2024-08-08] MEDS: Enoxaparin 40 MG/0.4 ML Syringe SUBCUT SCH (08:43)
[2024-08-08] MEDS: Ondansetron 4 MG Tab.DIS PO PRN (10:34)
[2024-08-09 07:05] LABS: BASOPHILS ABSOLUTE AUTO 0.1 K/mm3 (0.0-0.2); BASOPHILS PERCENT AUTO 0.2 % (0.0-1.0); EOSINOPHILS PERCENT AUTO 0.2 % (0.0-6.0); HEMATOCRIT 33.5 % (37.0-47.0); HEMOGLOBIN 11.2 gm/dl (12.0-16.0); IMMATURE GRAN ABSOLUTE AUTO 0.19 K/mm3 (0.00-0.05); IMMATURE GRAN PERCENT AUTO 0.9 % (0.0-0.4); LYMPHOCYTES ABSOLUTE AUTO 1.8 K/mm3 (1.0-4.8); MEAN CORPUSCULAR HEMOGLOBIN 27.8 pg (28.0-32.0); MEAN CORPUSCULAR HGB CONC 33.4 g/dl (32.0-36.0); MEAN CORPUSCULAR VOLUME 83.1 fl (83.0-99.0); MEAN PLATELET VOLUME 10.8 fl (9.4-12.3); MONOCYTES ABSOLUTE AUTO 2.1 K/mm3 (0.0-0.8); MONOCYTES PERCENT AUTO 9.7 % (0.0-8.0); NEUTROPHILS ABSOLUTE AUTO 17.6 K/mm3 (1.8-7.7); PLATELET COUNT,PLT 196 K/mm3 (150-400); RED BLOOD CELL COUNT 4.03 M/mm3 (4.10-5.30); WHITE BLOOD CELL COUNT,WBC 21.75 K/mm3 (3.9-11.3)
[2024-08-09 07:46] LABS: A/G RATIO 0.7 (1-2); ALBUMIN 2.6 g/dl (3.4-5.0); ANION GAP 17.1 (5-15); BUN/CREATININE RATIO 7.1 (14-18); CALCIUM 8.6 mg/dL (8.5-10.1); CREATININE 0.7 mg/dL (0.55-1.02); EST CRCL DRUG DOSING (CG) 79.34 mL/min; MAGNESIUM 1.4 mg/dL (1.8-2.4); POTASSIUM,K 4.1 mEq/L (3.5-5.1); PROTEIN TOTAL,TP 6.3 g/dl (6.4-8.2)
[2024-08-09] MEDS ORDERED: Sodium Chloride 0.9% 10 ML Syringe FLUSH PRN ×3 (07:48→10:19)
[2024-08-09 08:20] LABS: APPEARANCE,URINE CLEAR (Clear); BILIRUBIN,URINE 1+ (Negative); COLOR,URINE YELLOW (Yellow); GLUCOSE,URINE NEGATIVE (Negative); KETONES,URINE 4+ (Negative); LEUKOCYTE ESTERASE,URINE TRACE (Negative); NITRITE,URINE NEGATIVE (Negative); OCCULT BLOOD,URINE TRACE-LYSED (Negative); PROTEIN,URINE 2+ (Negative)
[2024-08-09 09:22] LABS: LACTIC ACID 1.7 mmol/L (0.4-2.0)
[2024-08-09 09:49] LABS: INR 1.13; PROTHROMBIN TIME 11.9 SECONDS (9.7-12.0)
[2024-08-09] MEDS ORDERED: Iopamidol 612 MG/ML 100 ML Bottle IVPUSH ONE (10:19)
[2024-08-09] MEDS: Iopamidol 612 MG/ML 100 ML Bottle IVPUSH ONE ×2 (10:45→17:04)
[2024-08-09] MEDS ORDERED: Sodium Chloride 0.9% 100 ML IV SCH (10:45)
[2024-08-09] MEDS: Piperacillin/Tazobactam 4.5 GM in Sodium Chloride 0.9% 100 ML IV ONE (10:51)
[2024-08-09 12:26] LABS: BACTERIA,URINE FEW /hpf (FEW); EPITHELIAL CELLS,URINE 0-5 /hpf (0-5); MUCUS,URINE FEW /hpf (FEW); RBC,URINE 0-5 /hpf (0-5)
[2024-08-09] MEDS: Piperacillin/Tazobactam 4.5 GM in Sodium Chloride 0.9% 100 ML IV SCH (13:20)
[2024-08-09] MEDS: Magnesium Sulfate/Water Premix 2 GM in Premix Bag 1 BAG IV ONE (14:37)
[2024-08-09] MEDS: Diltiazem 25 MG/5 ML SDV IVPUSH ONE (18:48)
[2024-08-09] MEDS: Polyethylene Glycol 3350 Powder 17 GM Packet PO PRN (20:50)
[2024-08-10] MEDS: Morphine 2 MG/ML SYRINGE IVPUSH PRN (04:29)
[2024-08-10 05:43] LABS: BASOPHILS ABSOLUTE AUTO 0.1 K/mm3 (0.0-0.2); BASOPHILS PERCENT AUTO 0.3 % (0.0-1.0); EOSINOPHILS ABSOLUTE AUTO 0.3 K/mm3 (0.0-0.4); EOSINOPHILS PERCENT AUTO 1.9 % (0.0-6.0); HEMATOCRIT 29.6 % (37.0-47.0); HEMOGLOBIN 9.9 gm/dl (12.0-16.0); IMMATURE GRAN ABSOLUTE AUTO 0.04 K/mm3 (0.00-0.05); IMMATURE GRAN PERCENT AUTO 0.3 % (0.0-0.4); LYMPHOCYTES ABSOLUTE AUTO 1.4 K/mm3 (1.0-4.8); LYMPHOCYTES PERCENT AUTO 9.8 % (24.0-44.0); MEAN CORPUSCULAR HEMOGLOBIN 27.5 pg (28.0-32.0); MEAN CORPUSCULAR HGB CONC 33.4 g/dl (32.0-36.0); MEAN CORPUSCULAR VOLUME 82.2 fl (83.0-99.0); MEAN PLATELET VOLUME 10.9 fl (9.4-12.3); MONOCYTES ABSOLUTE AUTO 1.5 K/mm3 (0.0-0.8); MONOCYTES PERCENT AUTO 10.3 % (0.0-8.0); NEUTROPHILS ABSOLUTE AUTO 11.4 K/mm3 (1.8-7.7); NEUTROPHILS PERCENT AUTO 77.4 % (41.0-71.0); PLATELET COUNT,PLT 181 K/mm3 (150-400); WHITE BLOOD CELL COUNT,WBC 14.67 K/mm3 (3.9-11.3)
[2024-08-10 06:06] LABS: A/G RATIO 0.7 (1-2); ALBUMIN 2.4 g/dl (3.4-5.0); ANION GAP 11.5 (5-15); BILIRUBIN TOTAL 0.6 mg/dL (0.2-1.0); BUN/CREATININE RATIO 7.1 (14-18); C-REACTIVE PROTEIN 20.36 mg/dL (<0.30); CALCIUM 8.1 mg/dL (8.5-10.1); CREATININE 0.7 mg/dL (0.55-1.02); EST CRCL DRUG DOSING (CG) 79.34 mL/min; POTASSIUM,K 3.5 mEq/L (3.5-5.1); PROTEIN TOTAL,TP 5.9 g/dl (6.4-8.2)
[2024-08-11 05:41] LABS: BASOPHILS PERCENT AUTO 0.4 % (0.0-1.0); EOSINOPHILS ABSOLUTE AUTO 0.5 K/mm3 (0.0-0.4); HEMATOCRIT 27.9 % (37.0-47.0); HEMOGLOBIN 9.4 gm/dl (12.0-16.0); IMMATURE GRAN ABSOLUTE AUTO 0.03 K/mm3 (0.00-0.05); IMMATURE GRAN PERCENT AUTO 0.3 % (0.0-0.4); LYMPHOCYTES ABSOLUTE AUTO 1.9 K/mm3 (1.0-4.8); LYMPHOCYTES PERCENT AUTO 20.8 % (24.0-44.0); MEAN CORPUSCULAR HEMOGLOBIN 27.4 pg (28.0-32.0); MEAN CORPUSCULAR HGB CONC 33.7 g/dl (32.0-36.0); MEAN CORPUSCULAR VOLUME 81.3 fl (83.0-99.0); MEAN PLATELET VOLUME 10.4 fl (9.4-12.3); MONOCYTES ABSOLUTE AUTO 0.9 K/mm3 (0.0-0.8); MONOCYTES PERCENT AUTO 9.3 % (0.0-8.0); NEUTROPHILS ABSOLUTE AUTO 5.9 K/mm3 (1.8-7.7); NEUTROPHILS PERCENT AUTO 64.2 % (41.0-71.0); PLATELET COUNT,PLT 200 K/mm3 (150-400); RED BLOOD CELL COUNT 3.43 M/mm3 (4.10-5.30); WHITE BLOOD CELL COUNT,WBC 9.25 K/mm3 (3.9-11.3)
[2024-08-11 06:14] LABS: A/G RATIO 0.6 (1-2); ALBUMIN 2.2 g/dl (3.4-5.0); ANION GAP 13.6 (5-15); BILIRUBIN TOTAL 0.4 mg/dL (0.2-1.0); BUN/CREATININE RATIO 7.1 (14-18); C-REACTIVE PROTEIN 11.85 mg/dL (<0.30); CALCIUM 8.3 mg/dL (8.5-10.1); CREATININE 0.7 mg/dL (0.55-1.02); EST CRCL DRUG DOSING (CG) 79.34 mL/min; POTASSIUM,K 3.6 mEq/L (3.5-5.1); PROTEIN TOTAL,TP 6.1 g/dl (6.4-8.2)
== END 2024-08-11 10:43 | disposition home or self-care (01) | DRG 438 ==
LOC: JD.ED 07:32 → JD.MS 10:03
PROVIDERS: ADMIT Family Medicine; ATTEND Family Medicine
DX: K85.30 Drug induced acute pancreatitis without necrosis or infection (principal); A41.9 Sepsis, unspecified organism; K29.00 Acute gastritis without bleeding; H54.7 Unspecified visual loss; E78.00 Pure hypercholesterolemia, unspecified; I10 Essential (primary) hypertension; K76.0 Fatty (change of) liver, not elsewhere classified; E11.69 Type 2 diabetes mellitus with other specified complication; T38.3X5A Adverse effect of insulin and oral hypoglycemic [antidiabetic] drugs, initial encounter; Z79.84 Long term (current) use of oral hypoglycemic drugs; Z79.899 Other long term (current) drug therapy; Z87.81 Personal history of (healed) traumatic fracture; Z90.89 Acquired absence of other organs; Z98.51 Tubal ligation status; Z90.49 Acquired absence of other specified parts of digestive tract
CPT/HCPCS: 36415; 74160; 74160-26; 74177; 74177-26; 80053; 80061; 81001; 82947; 83605; 83690; 83735; 85025; 85610; 86140; 87040; 96361; 96374; 96375; 99284; 99285-25; A9270-GY; J1171; J1650; J1815; J2270; J2405; J2470; J2543; J3475; J3490; J7120; Q9967